=== PATIENT | male | born 1940 | race Caucasian/White ===

== ENCOUNTER 2022-03-02 01:33 | Emergency (ER) | payer MEDICARE, MEDICAID ==
[~2022-03-02] VITALS: Ht 182.9 cm; Wt 95.5 kg
[2022-03-02 02:03] LABS: BASOPHILS % (AUTO) 0.4 % (0-1); EOSINOPHILS % (AUTO) 0.3 % (0-6); HEMATOCRIT 38.9 % (42.0-52.0); HEMOGLOBIN 13.1 g/dl (14.0-17.9); LYMPHOCYTES # (AUTO) 1.4 X10'3 (1.1-4.8); LYMPHOCYTES % (AUTO) 23.3 % (21-51); MEAN CORPUSCULAR HEMOGLOBIN 28.8 PG (27.0-31.0); MEAN CORPUSCULAR HGB CONC 33.7 g/dL (33.0-36.5); MEAN CORPUSCULAR VOLUME 85.3 FL (78-98); MEAN PLATELET VOLUME 8.2 FL (7.4-10.4); MONOCYTES # (AUTO) 1.1 X10'3 (0-0.9); MONOCYTES % (AUTO) 18.3 % (2-12); NEUTROPHILS # (AUTO) 3.5 X10'3 (1.8-7.7); NEUTROPHILS % (AUTO) 57.7 % (42-75); PLATELET COUNT 120 X10'3 (140-440); RED BLOOD COUNT 4.56 X10'6 (4.70-6.10); RED CELL DISTRIBUTION WIDTH 14.5 % (11.5-14.5)
[2022-03-02 02:26] LABS: ALANINE AMINOTRANSFERASE 22 U/L (12-78); ALBUMIN 3.6 G/DL (3.4-5.0); ALKALINE PHOSPHATASE 80 IU/L (46-116); ANION GAP 11 (8-16); ASPARTATE AMINO TRANSFERASE 32 U/L (10-37); BILIRUBIN,TOTAL 0.8 MG/DL (0.1-1.0); BLOOD UREA NITROGEN 34 MG/DL (7-18); BUN/CREATININE RATIO 19.2 (5.4-32.0); CALCIUM 8.9 MG/DL (8.5-10.1); CHLORIDE 101 MMOL/L (99-107); CREATININE 1.77 MG/DL (0.60-1.10); GLUCOSE 122 MG/DL (70-104); SODIUM 140 MMOL/L (135-145); TOTAL CARBON DIOXIDE 28.4 MMOL/L (24-32); TOTAL PROTEIN 7.2 G/DL (6.4-8.2); eGFR 37 ML/MIN
[2022-03-02 02:33] LABS: POTASSIUM 2.5 MMOL/L (3.5-5.1)
--- NOTE | 2022-03-02 02:33 | NUR ---
critical lab value; k of 2.5
[2022-03-02] MEDS ORDERED: potassium Cl 20 mEq SR tablet PO STA (02:34)
--- NOTE | 2022-03-02 02:34 | NUR ---
MD AWARE OF CRITICAL POTASSIUM LEVEL
[2022-03-02 02:52] LABS: MAGNESIUM 1.8 MG/DL (1.5-2.4)
[2022-03-02 03:24] LABS: PLATELET ESTIMATE DECREASED; TOTAL CELLS COUNTED 100
--- NOTE | 2022-03-02 04:58 | NUR ---
PT STATED HE WISHED TO LEAVE AMA DUE TO "NOT LIKING HOSPITALS" AND FEELING "ZERO OUT OF TEN CHEST PAIN". PT EDUCATED ON RISKS OF LEAVING AND VERBALIZED ASSOCIATED S/S TO RETURN TO ER WITH.
[2022-03-02 05:00] VITALS: BP 128/73
== END 2022-03-02 05:06 | disposition left against medical advice (07) ==
LOC: ER 01:34
DX: R07.89 Other chest pain (principal); R06.02 Shortness of breath; R11.0 Nausea; I25.10 Atherosclerotic heart disease of native coronary artery without angina pectoris; E78.00 Pure hypercholesterolemia, unspecified; I10 Essential (primary) hypertension; E11.9 Type 2 diabetes mellitus without complications; Z87.440 Personal history of urinary (tract) infections; Z95.5 Presence of coronary angioplasty implant and graft; Z79.01 Long term (current) use of anticoagulants
CPT/HCPCS: 36415; 71045; 80053; 83735; 83880; 84484; 85007; 85025; 93005; 99285

== ENCOUNTER 2022-08-21 08:21 | Emergency (ER) | payer MEDICARE, MEDICAID ==
[~2022-08-21] VITALS: Ht 185.4 cm; Wt 110.0 kg
[2022-08-21] MEDS ORDERED: cyclobenzaprine 10mg tablet PO ONE (09:30)
[2022-08-21] MEDS ORDERED: acetaminophen 325mg tablet PO ONE (10:30)
[2022-08-21] MEDS ORDERED: dexamethasone 4mg tablet PO ONE (10:30)
[2022-08-21 11:43] VITALS: BP 142/73
== END 2022-08-21 11:45 | disposition home or self-care (01) ==
LOC: ER 08:21
DX: M54.2 Cervicalgia (principal); R22.0 Localized swelling, mass and lump, head; I11.9 Hypertensive heart disease without heart failure; E78.00 Pure hypercholesterolemia, unspecified; E11.9 Type 2 diabetes mellitus without complications; Z87.442 Personal history of urinary calculi; Z91.013 Allergy to seafood
CPT/HCPCS: 72125; 99284

== ENCOUNTER 2023-02-23 09:50 | Emergency (ER) | payer MEDICARE, MEDICAID ==
[~2023-02-23] VITALS: Ht 185.4 cm; Wt 89.6 kg
[2023-02-23 09:59] VITALS: BP 138/84
[2023-02-23] MEDS ORDERED: cephalexin 250mg capsule PO ONE (11:35)
[2023-02-23] MEDS ORDERED: CEPH-585 PO (11:42)
== END 2023-02-23 12:10 | disposition home or self-care (01) ==
LOC: ER 09:51
DX: M25.531 Pain in right wrist (principal); L03.113 Cellulitis of right upper limb; E78.00 Pure hypercholesterolemia, unspecified; I10 Essential (primary) hypertension; E11.9 Type 2 diabetes mellitus without complications; Z91.013 Allergy to seafood
CPT/HCPCS: 73110; 99283; A6449